=== PATIENT | male | born 1970 | race Caucasian/White ===

== ENCOUNTER 2016-03-03 20:53 | Observation (INO) | payer OTHER ==
[2016-03-03] MEDS ORDERED: SODIUM CHLORIDE 0.9% 1,000 ML IV STA ×2 (22:03)
[2016-03-03] MEDS ORDERED: INSULIN REGULAR 100 UNIT/ML VIAL IV ONE (22:04)
--- NOTE | 2016-03-03 22:07 | ED ---
General Adult HPI - General Chief complaint: Recheck/Abnormal Lab/Rx Stated complaint: Dr Angel/Mariposa High Blood Sugar Time Seen by Provider: 03/03/16 21:48 Source: patient, family, RN notes reviewed Mode of arrival: wheelchair Limitations: no limitations - History of Present Illness Initial comments: Patient is a pleasant 45-year-old male presenting to the emergency department with concerns regarding high blood sugar. Patient has been off his insulin until he follow-up with his doctor on Friday and restarted at that time. Blood sugar has been as high as 570. Blood sugar was done by the primary care physician on Friday and call was received stating he was 370 and come to the hospital. Patient admits to feeling fatigued. Patient also admits to polyuria and polydipsia. No fevers. No pain. No vomiting. - Related Data Home Medications Medication Instructions Recorded Confirmed Atenolol [Tenormin] 25 mg PO BID 07/04/14 03/02/15 glipiZIDE [Glucotrol] 5 mg PO DAILY 07/04/14 03/02/15 Insulin Detemir [Levemir] 30 unit SQ DAILY 08/02/14 03/02/15 oxyCODONE HCL [Oxyir] 5 mg PO BID PRN 08/02/14 03/02/15 ALPRAZolam [Xanax] 1 mg PO BID PRN 01/28/15 03/02/15 DULoxetine HCL [Cymbalta] 90 mg PO DAILY 01/28/15 03/02/15 Gabapentin [Neurontin] 600 mg PO TID 01/28/15 03/02/15 Lisinopril [Zestril] 5 mg PO HS 01/28/15 03/02/15 Mirtazapine [Remeron] 30 mg PO HS 01/28/15 03/02/15 Multivitamin [Men's Multi-Vitamin] 1 tab PO DAILY 01/28/15 03/02/15 Propylene Glycol/Peg 400/Pf 1 drop LEFT EYE DAILY PRN 01/28/15 03/02/15 [Systane 0.3-0.4% Eye Drops] fentaNYL 75MCG/HR PATCH [Duragesic 75 mcg TRANSDERM Q72H 01/28/15 03/02/15 75Mcg/Hr Patch] Previous Rx's Medication Instructions Recorded ALPRAZolam [Xanax] 1 mg PO BID PRN #20 tab 03/02/15 Penicillin V Potassium [Pen Vee K] 500 mg PO QID #28 tab 03/02/15 oxyCODONE-APAP 5-325MG [Percocet 1 tab PO BID PRN #20 tab 03/02/15 5-325 mg] Allergies Allergy/AdvReac Type Severity Reaction Status Date / Time No Known Allergies Allergy Verified 03/03/16 21:25 Review of Systems ROS Statement: Those systems with pertinent positive or pertinent negative responses have been documented in the HPI. ROS Other: All systems not noted in ROS Statement are negative. Constitutional: Denies: fever Eyes: Denies: eye pain ENT: Denies: ear pain Respiratory: Denies: cough Cardiovascular: Denies: chest pain Endocrine: Reports: fatigue, polydipsia, polyuria Gastrointestinal: Denies: abdominal pain Genitourinary: Denies: dysuria Musculoskeletal: Denies: back pain Skin: Denies: rash Neurological: Denies: headache Past Medical History Past Medical History: Diabetes Mellitus, Hyperlipidemia, Hypertension Additional Past Medical History / Comment(s): compartmental syndrome R lower extremity, chronic back pain, chronic neck pain, previous history of fasciotomy for a crush injury of the right lower extremity she is at [facility], attention deficit disorder/ADHD, anxiety, bipolar disorder, depression, History of Any Multi-Drug Resistant Organisms: None Reported Past Surgical History: No Surgical Hx Reported Additional Past Surgical History / Comment(s): R lower leg split thickness skin graft and fasciotomy Past Anesthesia/Blood Transfusion Reactions: No Reported Reaction Past Psychological History: ADD/ADHD, Anxiety, Bipolar, Depression Additional Psychological History / Comment(s): Pt resides with significant other. He is normally independent. He does not drive. He uses a walker to ambulate occassionaly. Smoking Status: Current every day smoker Past Alcohol Use History: Occasional Additional Past Alcohol Use History / Comment(s): started smoking in teenage years 1 ppd, smoking cessation booklet given, occ smoked marijuana Past Drug Use History: Marijuana Additional Drug Use History / Comment(s): past benzodiazepines- denies use at this time - Past Family History Father Additional Family Medical History / Comment(s): chronic back pain Mother Family Medical History: Diabetes Mellitus, Hypertension Additional Family Medical History / Comment(s): depression General Exam Limitations: no limitations General appearance: alert, in no apparent distress Head exam: Present: atraumatic Eye exam: Present: normal appearance ENT exam: Present: normal oropharynx Neck exam: Present: normal inspection Respiratory exam: Present: normal lung sounds bilaterally Cardiovascular Exam: Present: regular rate, normal rhythm GI/Abdominal exam: Present: soft. Absent: distended, tenderness, guarding, rebound, rigid Extremities exam: Present: normal inspection Neurological exam: Present: alert Psychiatric exam: Present: normal affect, normal mood Skin exam: Absent: rash Course Vital Signs 03/03/16 03/03/16 21:15 22:48 Temperature 98.1 F 97.8 F Pulse Rate 55 L 77 Respiratory 14 20 Rate Blood Pressure 98/55 101/58 O2 Sat by Pulse 97 99 Oximetry EKG Findings - EKG Comments: EKG Findings:: Normal sinus rhythm 78. ID 152. QRS 92. QT 396. QTc 451. Normal axis. Normal QRS. Normal ST-T. Medical Decision Making - Medical Decision Making Patient reexamined and resting comfortably in bed. Patient does have mild DKA. Patient and family updated. Case was discussed in detail with Dr. infante, who will admit for Dr. Lizbeth Bennett. IV insulin and IV fluids started. Admission orders written. - Lab Data Result diagrams: 03/03/16 22:30 03/03/16 22:30 Lab Results 03/03/16 03/03/16 03/03/16 Range/Units 22:30 22:30 22:51 WBC 5.5 (3.8-10.6) k/uL RBC 4.63 (4.30-5.90) m/uL Hgb 13.6 (13.0-17.5) gm/dL Hct 41.0 (39.0-53.0) % MCV 88.7 (80.0-100.0) fL MCH 29.4 (25.0-35.0) pg MCHC 33.1 (31.0-37.0) g/dL RDW 13.9 (11.5-15.5) % Plt Count 172 (150-450) k/uL Neutrophils % 60 % Lymphocytes % 30 % Monocytes % 5 % Eosinophils % 2 % Basophils % 0 % Neutrophils # 3.3 (1.3-7.7) k/uL Lymphocytes # 1.7 (1.0-4.8) k/uL Monocytes # 0.3 (0-1.0) k/uL Eosinophils # 0.1 (0-0.7) k/uL Basophils # 0.0 (0-0.2) k/uL Sodium 138 (137-145) mmol/L Potassium 3.9 (3.5-5.1) mmol/L Chloride 101 (98-107) mmol/L Carbon Dioxide 22 (22-30) mmol/L Anion Gap 15 mmol/L BUN 14 (9-20) mg/dL Creatinine 0.70 (0.66-1.25) mg/dL Est GFR (MDRD) Af Amer >60 (>60 ml/min/1.73 sqM) Est GFR (MDRD) Non-Af >60 (>60 ml/min/1.73 sqM) Glucose 308 H (74-99) mg/dL POC Glucose (mg/dL) 318 H (75-99) mg/dL POC Glu Punchboard Inserter ID Clementine Reid David Calcium 9.1 (8.4-10.2) mg/dL Total Bilirubin 0.2 (0.2-1.3) mg/dL AST 31 (17-59) U/L ALT 56 (21-72) U/L Alkaline Phosphatase 122 (38-126) U/L Total Protein 5.8 L (6.3-8.2) g/dL Albumin 3.7 (3.5-5.0) g/dL Acetone, Qual Positive (Negative) Critical Care Time Critical Care Time: Yes Total Critical Care Time: 32 Disposition Clinical Impression: Diabetic ketoacidosis Disposition: ADMITTED IP TO THIS HOSP
[2016-03-03 22:50] LABS: Basophils % (A) 0 %; CH 30.2; CHCM 34.1; Eosinophils # (A) 0.1 k/uL (0-0.7); Eosinophils % (A) 2 %; HDW 2.78; HGB 13.6 gm/dL (13.0-17.5); Luc # (Auto) 0.18; Luc % (Auto) 3; Lymphocytes # (A) 1.7 k/uL (1.0-4.8); Lymphocytes % (A) 30 %; MCH 29.4 pg (25.0-35.0); MCHC 33.1 g/dL (31.0-37.0); MCV 88.7 fL (80.0-100.0); Mean Platelet Volume 9.4; Monocytes # (A) 0.3 k/uL (0-1.0); Monocytes % (A) 5 %; Neutrophils # (A) 3.3 k/uL (1.3-7.7); Neutrophils % (A) 60 %; RBC 4.63 m/uL (4.30-5.90); RDW 13.9 % (11.5-15.5); WBC 5.5 k/uL (3.8-10.6); WBC (Perox) 5.66
[2016-03-03 22:52] LABS: Glucose,Whole Blood 318 mg/dL (75-99)
[2016-03-03 23:10] LABS: ALT 56 U/L (21-72); AST 31 U/L (17-59); Alkaline Phosphatase 122 U/L (38-126); Anion Gap 15 mmol/L; Blood Urea Nitrogen 14 mg/dL (9-20); Calcium 9.1 mg/dL (8.4-10.2); Carbon Dioxide 22 mmol/L (22-30); Chloride 101 mmol/L (98-107); Glucose 308 mg/dL (74-99); Non-African American GFR(MDRD) >60 (>60 ml/min/1.73 sqM); Potassium 3.9 mmol/L (3.5-5.1); Sodium 138 mmol/L (137-145); Total Bilirubin 0.2 mg/dL (0.2-1.3); Total Protein 5.8 g/dL (6.3-8.2)
[2016-03-03] MEDS ORDERED: SODIUM CHLORIDE 0.9% 1,000 ML IV ONE (23:39)
[2016-03-03 23:42] LABS: Glucose,Whole Blood 259 mg/dL (75-99)
--- NOTE | 2016-03-04 00:21 | XR ---
EXAMINATION TYPE: XR chest 2V DATE OF EXAM: 03/04/2016 12:13 AM COMPARISON: 01/29/2015 HISTORY: Weakness TECHNIQUE: Frontal and lateral views of the chest are obtained. FINDINGS: Heart and mediastinum are normal. Lungs are clear. Costophrenic angles are clear. There ar e no hilar masses. Bony thorax is intact. IMPRESSION: Normal chest. No change.
[2016-03-04 00:25] LABS: Glucose,Whole Blood 282 mg/dL (75-99)
[2016-03-04 00:25] LABS: Glucose,Whole Blood 222 mg/dL (75-99)
[2016-03-04] MEDS: INSULIN REGULAR 100 UNIT in SODIUM CHLORIDE 0.9% 100 ML IV SCH ×2 (00:48→12:05)
[2016-03-04] MEDS: D5-0.45% NACL WITH KCL 20MEQ/L 1,000 ML IV SCH ×3 (00:48→15:40)
[2016-03-04 00:50] LABS: Glucose,Whole Blood 226 mg/dL (75-99)
[2016-03-04] MEDS: SODIUM CHLORIDE 0.9% 1,000 ML IV SCH ×4 (00:54→15:40)
[2016-03-04 01:23] VITALS: BMI 30.9
[2016-03-04 01:36] VITALS: RESP 20
[2016-03-04 01:54] LABS: Glucose,Whole Blood 179 mg/dL (75-99)
[2016-03-04] MEDS ORDERED: oxyCODONE-APAP 5-325MG 1 EACH TAB PO STA (02:06)
[2016-03-04 03:22] LABS: Anion Gap 7 mmol/L; Blood Urea Nitrogen 13 mg/dL (9-20); Carbon Dioxide 24 mmol/L (22-30); Chloride 106 mmol/L (98-107); Glucose 133 mg/dL (74-99); Non-African American GFR(MDRD) >60 (>60 ml/min/1.73 sqM); Phosphorous 2.5 mg/dL (2.5-4.5); Potassium 3.8 mmol/L (3.5-5.1); Sodium 137 mmol/L (137-145)
[2016-03-04 03:22] LABS: Glucose,Whole Blood 121 mg/dL (75-99)
[2016-03-04 04:14] LABS: Glucose,Whole Blood 102 mg/dL (75-99)
[2016-03-04] MEDS ORDERED: INFLUENZA VACCINE (3YR+) 60 MCG/0.5 ML SYRINGE IM ONE (04:23)
[2016-03-04 06:15] LABS: Glucose,Whole Blood 97 mg/dL (75-99)
[2016-03-04] MEDS: INSULIN LISPRO (humaLOG) 300 UNIT/3 ML VIAL SQ SCH ×3 (06:15→17:14)
[2016-03-04] MEDS: INSULIN DETEMIR 100 UNIT/ML 10 ML VIAL SQ SCH ×2 (06:31→06:34)
[2016-03-04 06:47] LABS: Anion Gap 8 mmol/L; Blood Urea Nitrogen 12 mg/dL (9-20); Carbon Dioxide 24 mmol/L (22-30); Chloride 107 mmol/L (98-107); Glucose 86 mg/dL (74-99); Non-African American GFR(MDRD) >60 (>60 ml/min/1.73 sqM); Phosphorous 2.9 mg/dL (2.5-4.5); Potassium 3.8 mmol/L (3.5-5.1); Sodium 139 mmol/L (137-145)
[2016-03-04 07:40] LABS: Glucose,Whole Blood 300 mg/dL (75-99)
[2016-03-04] MEDS: oxyCODONE-APAP 5-325MG 1 EACH TAB PO PRN ×2 (08:49→16:39)
[2016-03-04 08:51] VITALS: TEMP 97.3
[2016-03-04 08:56] LABS: Hemoglobin A1C 12.6 % (4.2-6.1)
[2016-03-04] MEDS ORDERED: INSULIN DETEMIR 100 UNIT/ML 10 ML VIAL SQ SCH (09:00)
[2016-03-04 11:58] LABS: Glucose,Whole Blood 265 mg/dL (75-99)
[2016-03-04] MEDS ORDERED: DULoxetine HCL 60 MG CAPSULE.DR PO SCH (15:15)
[2016-03-04] MEDS ORDERED: glipiZIDE 5 MG TAB PO SCH (15:15)
[2016-03-04] MEDS ORDERED: LISINOPRIL 5 MG TAB PO SCH (15:15)
[2016-03-04] MEDS ORDERED: GABAPENTIN 400 MG CAP PO SCH (16:00)
[2016-03-04] MEDS ORDERED: NICOTINE 21MG/24HR PATCH TRANSDERM SCH (16:45)
[2016-03-04] MEDS ORDERED: ENOXAPARIN 40 MG/0.4 ML SYRINGE SQ SCH (16:45)
[2016-03-04 16:52] LABS: Glucose,Whole Blood 266 mg/dL (75-99)
[2016-03-04] MEDS ORDERED: INSULIN LISPRO (humaLOG) 300 UNIT/3 ML VIAL SQ SCH (17:30)
[2016-03-04 17:37] VITALS: BP 119/78; PULSE 78
--- NOTE | 2016-03-04 20:39 | HP ---
DATE OF ADMISSION: 03/03/2016 PRESENTING COMPLAINT: High sugar. HISTORY OF PRESENTING COMPLAINT: 45 -year-old patient of Dr. Latonia Lu whose chronic stable medical conditions include hypertension, hyperlipidemia, bipolar. Patient is in Levemir at home. Patient ( ) about two weeks ago and sugar has been running high. The patient having a problem with insurance, hence did not take his insulin. Sugars running in the 500s. Patient was found to be in diabetic ketoacidosis, ( ) insulin drip. REVIEW OF SYSTEMS: CONSTITUTIONAL: Tired. HEENT: None. RESPIRATORY: None. CARDIOVASCULAR: None. GASTROINTESTINAL: None. GENITOURINARY: None. MUSCULOSKELETAL: Some chronic pain in the right lower extremity. Dermatologic: None. HEMATOLOGIC: None. LYMPHATIC: None. PSYCHIATRY: History of bipolar, controlled. NEUROLOGICAL: Some neuropathic pain in his right lower extremity he states. PAST MEDICAL HISTORY: Diabetes mellitus type 2, hyperlipidemia, hypertension, compartment syndrome, right lower extremity in the past, chronic low back pain, chronic neck pain, previous history of fasciotomy for a crush injury of the right lower extremity for which he was at [facility], attention deficit hyperactivity disorder, bipolar disorder, depression. PAST SURGICAL HISTORY: Right lower extremity split thickness skin graft and fasciotomy. Past psych history. Attention deficit hyperactivity disorder, bipolar disorder. SOCIAL HISTORY: Patient lives with his . Still smoking about a pack a day. Denies any alcohol. FAMILY HISTORY: Diabetes, hypertension. HOME MEDICATIONS: 1. Cymbalta 60 mg a day. 2. Glucotrol 5 mg p.o. daily. 3. Men's multivitamin 1 tablet p.o. daily. 4. Remeron 30 mg q.h.s. 5. Zestril 5 mg p.o. daily. 6. Levemir 3 units subcu daily. 7. Gabapentin 800 mg t.i.d. 8. Tenormin 25 mg b.i.d. ALLERGIES: None. On examination: Vital signs on presentation: Temperature 98.1, pulse 85, respiration 18, blood pressure 98/55, pulse ox 97% on room air. GENERAL APPEARANCE: Average build, sitting up, not in distress. EYES: Pupils equal, conjunctivae normal. HEENT: External appearance of nose and ears normal. NECK: JVD not raised. Mass not palpable. RESPIRATORY: Effort normal. LUNGS: Fair air entry. CARDIOVASCULAR: First and second sounds normal. No edema. ABDOMEN: Soft. Nontender. Liver and spleen not palpable. LYMPHATICS: No lymph nodes palpable in the neck or axilla. PSYCHIATRY: Alert and oriented x three. Mood and affect normal. NEUROLOGICAL: ( ) cranial nerves grossly intact. Power and sensation grossly intact. INVESTIGATIONS: White count 5.5, hemoglobin 13.6, potassium 3.9. Accu-Cheks ( ) glucose of ( ). Serum acetone positive. ASSESSMENT: 1. Acute diabetic ketoacidosis in a patient who has not been taking insulin at home as he had broken the bottle. 2. Diabetes mellitus type 2. 3. Hyperlipidemia. 4. Essential hypertension. 5. Chronic pain, right lower extremity type unknown. 6. Bipolar disorder. 7. Chronic nicotine dependence. Patient is a cigarette smoker. PLAN: Patient put on insulin drip. Home medications are resumed. Patient counseled against smoking, will be given a nicotine patch. The patient educated that he needs probably Humalog with each meal as Levemir will only take care of the ( ) insulin. I do not think patient needs ( ) hence this can be discontinued.
[2016-03-04] MEDS ORDERED: MIRTAZAPINE 15 MG TAB PO SCH (21:00)
[2016-03-04] MEDS ORDERED: ATENOLOL 25 MG TAB PO SCH (21:00)
--- NOTE | 2016-03-05 08:50 | DS ---
DATE OF ADMISSION: 03/03/2016 DATE OF DISCHARGE: 03/04/2016 FINAL DIAGNOSES: 1. Acute diabetic ketoacidosis , not taking his insulin. 2. Hyperlipidemia. 3. Essential hypertension. 4. Bipolar disorder. HOSPITAL COURSE: This patient broke a vial of his insulin, Levemir. Came in with diabetic ketoacidosis . He was put back on his Levemir. I am adding Humalog to cover his meals and glyburide has been discontinued. The patient was asking for pain medication. Did tell him he needs to ( ) pain doctor. Patient does see Dr. Arredondo as an outpatient. The patient is up and about, appeared rather comfortable otherwise. Care was discussed in detail with the patient. On exam, lungs are clear. CARDIOVASCULAR: First and second seconds are normal. Also counseled against smoking. DISCHARGE MEDICATIONS: 1. Tenormin 25 mg p.o. b.i.d. 2. Levemir 30 units subcu daily. 3. Zestril 5 mg p.o. daily. 4. Remeron 30 mg q.h.s. 5. Men's multivitamin 1 tablet p.o. daily. 6. Cymbalta 60 mg p.o. daily. 7. Gabapentin 800 mg p.o. t.i.d. 8. Humalog ( ). 9. ( ) patch. Follow up with Dr. Lu in 2 days. Follow up with Dr. Arredondo, patient to keep his appointment. Diabetic diet. On examination, lungs are clear. CARDIOVASCULAR: First and second sounds normal.
== END 2016-03-04 18:05 | disposition home or self-care (01) ==
LOC: EC 20:53 → 6SEL 23:39 → INTOOBSV 23:39
PROVIDERS: ADMIT Hospitalist; ATTEND Hospitalist
DX: E13.10 Other specified diabetes mellitus with ketoacidosis without coma (principal); I10 Essential (primary) hypertension; E78.5 Hyperlipidemia, unspecified; F17.210 Nicotine dependence, cigarettes, uncomplicated; F90.9 Attention-deficit hyperactivity disorder, unspecified type; F31.9 Bipolar disorder, unspecified; G89.29 Other chronic pain; F41.9 Anxiety disorder, unspecified; M54.2 Cervicalgia; M54.5 Low back pain; Z79.84 Long term (current) use of oral hypoglycemic drugs; Z79.899 Other long term (current) drug therapy; Z82.49 Family history of ischemic heart disease and other diseases of the circulatory system; Z79.4 Long term (current) use of insulin; Z91.14 Patient's other noncompliance with medication regimen
CPT/HCPCS: 99285; 96374; 96361; 36415; 93005; 80051; 80053; 83036; 82565; 82009; 84100; 82947; 84520; 85025; 71020; 90686; G0378 ×2; G0008; J1650; 96372

== ENCOUNTER → 2016-03-20 | Outpatient (CLI) | payer OTHER ==
--- NOTE | 2016-03-20 09:29 | US ---
EXAMINATION TYPE: US abdomen complete DATE OF EXAM: 03/20/2016 9:16 AM COMPARISON: NONE CLINICAL HISTORY: R10.13 intermittent epigastric abdominal pain, patient states he cannot hold anythi ng down after eating. EXAM MEASUREMENTS: Liver Length: 16.5cm Gallbladder Wall: 0.2cm CBD: 0.4cm Spleen: 10.3cm Right Kidney: 11.0 x 4.9 x 6.2cm Left Kidney: 12.4 x 5.0 x 6.3cm TECHNOLOGIST IMPRESSION: Pancreas: limited due to bowel gas Liver: very difficult to penetrate, focal fatty sparing Gallbladder: wnl Evidence for sonographic Carroll's sign: no CBD: wnl Spleen: wnl Right Kidney: wnl Left Kidney: wnl Upper IVC: wnl Abd Aorta: limited views appeared wnl The liver is homogenous. The intrahepatic portion of the IVC and proximal abdominal aorta are within normal limits. There is no evidence of cholelithiasis. Common bile duct is unremarkable. The visu alized portions of the pancreas are homogenous. The spleen is unremarkable. Kidneys are symmetric a nd free of hydronephrosis. No renal lesions are seen. IMPRESSION: 1. Poor visualization of the pancreas. 2. Fatty infiltration of the liver.
== END | disposition home or self-care (01) ==
LOC: RADUSWWP 08:47
PROVIDERS: ATTEND Family Medicine
DX: K76.0 Fatty (change of) liver, not elsewhere classified (principal); R10.13 Epigastric pain
CPT/HCPCS: 76700